=== PATIENT | female | born 1985 | race Caucasian/White ===

== ENCOUNTER 2017-02-03 19:23 | Emergency (ER) | payer MEDICARE, BC ==
--- NOTE | 2017-03-09 15:38 | ER ---
ADMIT: 02/03/2017 RM/LOC: ER [facility] MR#: [id number] [place], [place] [id number] KERRY MITCHELL [address] [place] [id number] Emergency Room Report SEX: F AGE: 31 : 1985 DATE: 02/03/2017 ADDENDUM: This patient comes into the ER because she has a control device in her left arm. She states she was lying down, she felt a twinge in her arm. She felt around where the implant was and now can no longer find it. She went to Urgent Care, and they told her she needed to come to the ER immediately. On physical exam, she has a large, obese arm. I do not feel the implant, but there are no signs of an infection and she has good range of motion of that extremity. She will have to follow up with Dr. Sal Majano. Please see my T-sheet. ANGELICA Cavazos / Irwin Banuelos MD / modl JOB #: [id number] CC: Irwin Banuelos MD, Attending Physician Sal Majano MD, Family Physician
== END 2017-02-03 20:30 | disposition home or self-care (01) ==
LOC: ER 19:23
DX: M79.622 Pain in left upper arm (principal); J45.909 Unspecified asthma, uncomplicated; F32.9 Major depressive disorder, single episode, unspecified; E03.9 Hypothyroidism, unspecified; Z90.49 Acquired absence of other specified parts of digestive tract; Z79.899 Other long term (current) drug therapy